=== PATIENT | male | born 1985 | race Caucasian/White ===

== ENCOUNTER 2021-02-12 09:23 | Emergency (ER) | payer SELFPAY ==
--- NOTE | 2021-02-12 09:29 | ED.BACK ---
HPI - Back Pain/Injury General Chief Complaint: Back Pain/Injury Stated Complaint: middle back pain Time Seen by Provider: 02/12/21 10:00 Source: patient and RN notes reviewed Mode of arrival: ambulatory Limitations: no limitations History of Present Illness HPI Narrative: 35-year-old male presents with concern for left-sided mid back pain. Reports pain started overnight, denies injury or trauma. Reports if he is sitting still he does not have pain, reports pain worsens with sitting, standing, bending, twisting. He denies shortness of breath, reports pain is exacerbated with deep breathing or coughing. He denies tenderness, bruising, redness, rash. He denies chest pain, shortness of breath. Reports he took Tylenol and ibuprofen which helped with the pain. He denies any recent increase in activity, repetitive activities. He denies recent upper respiratory infection or cough. MD elicited complaint: back pain Related Data Allergies Allergy/AdvReac Type Severity Reaction Status Date / Time No Known Allergies Allergy Verified 02/12/21 09:54 Review of Systems Review of Systems: CONSTITUTIONAL: Denies malaise, chills, sweats, or fever. ENT: Denies rhinorrhea, congestion, sinus pain, otalgia or sore throat. CARDIOVASCULAR: Denies chest pain, palpitations, or edema. RESPIRATORY: Denies cough or dyspnea. GASTROINTESTINAL: Denies abdominal pain, nausea, vomiting, diarrhea, bloody, or mucous stools, loss of bowel function. GENITOURINARY: Denies dysuria or hematuria, loss of bladder function. SKIN: Denies redness, bruising, swelling rash or itching. MUSCULOSKELETAL: Reports left mid back pain. Denies joint pain or myalgia. NEUROLOGIC: Denies numbness, weakness, or headache. All systems reviewed & are unremarkable except as noted in HPI and below PMFSH Comments At time of signature, agree with nursing past medical, surgical, social and family history. There is no relevant family history pertinent to the presenting complaint Exam Narrative: GENERAL: Well-appearing, well-nourished, and in no acute distress. HEAD: Normocephalic, atraumatic. EYES: PERRLA and EOMI. NECK: Supple. No lymphadenopathy. CHEST: Clear to auscultation. No respiratory distress. HEART: Regular rate and rhythm. Distal pulses palpable and equal, cap refill <3 seconds ABDOMEN: Soft, nontender, nondistended, normal active bowel sounds, no palpable or pulsatile masses. No CVA tenderness MUSCULOSKELETAL: Normal range of motion and strength in all extremities; 5/5 strength with hip flexion and extension, dorsiflexion and extension, knee flexion and extension, plantar flexion and extension. Normal sensation in dermatomal distributions with sensitivity to light touch and pain. No midline back tenderness to palpation. No paraspinal tenderness. Transfers from lying to sitting to standing. SKIN: Warm, dry, no rash. No ecchymosis, erythema, open wounds to back. NEURO: No focal deficits. Alert and oriented x3. Reflexes intact. Normal gait. PSYCH: Normal mood and affect Course Course Emergency Course: Patient is aware of diagnosis, understands and agrees to treatment plan. Anticipatory guidance given. Patient agrees to follow-up as directed and is aware of reasons to seek care at the emergency department. Portions of this record may have been created with voice recognition software Vital Signs Vital signs: Vital Signs Temperature 97.7 F 02/12/21 09:30 Pulse Rate 117 H 02/12/21 09:30 Respiratory Rate 14 02/12/21 09:30 Blood Pressure 132/86 02/12/21 09:30 Pulse Oximetry 99 02/12/21 09:30 Temperature 97.7 F 02/12/21 09:30 Pulse Rate 117 H 02/12/21 09:30 Respiratory Rate 14 02/12/21 09:30 Blood Pressure 132/86 02/12/21 09:30 Pulse Oximetry 99 02/12/21 09:30 Reviewed. MDM - Back Pain/Injury MDM Narrative Medical decision making narrative: No risk factors or findings concerning for epidural abscess, diskitis, vertebral osteomyelitis, cord comp
[2021-02-12 09:30] VITALS: BP 132/86; PULSE 117; RESP 14; TEMP 36.5; O2SAT 99
== END 2021-02-12 10:21 | disposition home or self-care (01) ==
PROVIDERS: Emergency Provider Nurse Practitioner
DX: M54.9 Dorsalgia, unspecified (principal)
CPT/HCPCS: 99213; G0463